=== PATIENT | female | born 1935 | race Caucasian/White ===

== ENCOUNTER 2016-12-02 13:04 | Inpatient (IN) | payer MEDICARE, OTHER ==
[~2016-12-02] VITALS: Ht 172.7 cm; Wt 78.9 kg
[~2016-12-02 13:04] MED LIST: ACET325T9 PO; BUTA1CAP29 PO; ESTR0.3T PO; HYDR12.58 PO; LEVO75TA PO; MULT-211 PO; NORT25CA PO; ONDA8TAB12 PO; PANT40TA3 PO; PRAV20TA2 PO; QUIN10TA7 PO; QUIN324C3 PO
--- NOTE | 2016-12-02 13:27 | RAD ---
CT of the head without contrast, 12/02/2016: History: Altered mental status There is mild bilateral cerebral atrophy. The ventricles are within normal limits in size. There is no shift of the midline structures. There is no evidence of acute intracranial hemorrhage or mass effect. There are mild bilateral deep white matter lucencies suggesting chronic ischemic change. IMPRESSION: 1. Bilateral deep white matter lucencies compatible with chronic ischemic change. 2. No acute intracranial abnormality is detected. 3. MR scanning would be a more sensitive method of further evaluation, if clinically indicated. Note: The findings were called to personnel in the [facility] ER at 1:24 PM on 12/02/2016. PQRS Compliance Statement: One or more of the following individualized dose reduction techniques were utilized for this examination: 1. Automated exposure control 2. Adjustment of the mA and/or kV according to patient size 3. Use of iterative reconstruction technique
[2016-12-02] MEDS ORDERED: METOCLOPRAMIDE HCL 10 MG/2 ML VIAL. ONE (13:34)
[2016-12-02 13:42] LABS: BASO % 1 % (0-3); EOS # 0.1 x10^3/uL (0.0-0.7); EOS % 2 % (0-3); HEMATOCRIT 38.2 % (36.0-47.0); HEMOGLOBIN 13.3 g/dL (12.0-15.5); LYMPH # 1.7 x10^3/uL (1.0-4.8); LYMPH % 32 % (24-48); MEAN CORPUSCULAR HEMOGLOBIN 34 pg (25-35); MEAN CORPUSCULAR HGB CONC 35 g/dL (31-37); MEAN CORPUSCULAR VOLUME 98 fL (79-100); MONO # 0.5 x10^3/uL (0.0-1.1); MONO % 10 % (0-9); NEUT # 2.9 x10^3uL (1.8-7.7); NEUT % 55 % (31-73); PLATELET COUNT 169 x10^3/uL (140-400); RED BLOOD COUNT 3.88 x10^6/uL (3.50-5.40); RED CELL DISTRIBUTION WIDTH 12.9 % (11.5-14.5); WHITE BLOOD COUNT 5.3 x10^3/uL (4.0-11.0)
[2016-12-02 13:51] LABS: POTASSIUM ISTAT 3.3 mmol/L (3.5-5.0)
[2016-12-02 13:52] LABS: HEMOGLOBIN ISTAT 12.9 gm/dL
--- NOTE | 2016-12-02 13:52 | EKG ---
[address] [address] Test Date: 2016-12-02 Test Time: 13:18:34 Pat Name: FABI RODRIGUEZ Department: Room: Gender: F [employer]: : [id number] Requested By: REJI BEJARANO Order Number: [id number] Reading MD: Maxim Ferguson Measurements Intervals [place] Rate: 101 P: -31 IN: 188 QRS: -12 QRSD: 76 T: 26 QT: 396 QTc: 514 Interpretive Statements SINUS TACHYCARDIA CONSISTENT WITH INFERIOR INFARCT PROBABLY OLD Electronically Signed On 12-04-2016 9:55:49 CDT by Maxim Ferguson
--- NOTE | 2016-12-02 13:52 | RAD ---
Portable chest, 12/02/2016: History: Weakness Comparison is made to a study from 09/16/2015. The heart size is normal. There is tortuosity of the thoracic aorta. There is a retrocardiac density due to the patient's known hiatal hernia. The pulmonary vascularity is normal. No pulmonary infiltrates are seen. There is no evidence of pleural fluid. IMPRESSION: No acute cardiopulmonary abnormality is detected.
[2016-12-02 13:57] LABS: ALBUMIN 3.7 g/dL (3.4-5.0); DIRECT BILIRUBIN 0.1 mg/dL (0.0-0.2); TOTAL BILIRUBIN 0.3 mg/dL (0.2-1.0); TOTAL PROTEIN 6.5 g/dL (6.4-8.2)
[2016-12-02] MEDS ORDERED: METOCLOPRAMIDE HCL 10 MG/2 ML VIAL. IV ONE (14:00)
[2016-12-02 14:55] LABS: BILIRUBIN,URINE NEG (NEG); CLARITY,URINE HAZY; COLOR,URINE YELLOW; GLUCOSE,URINE NEG (NEG); NITRITE,URINE POS (NEG); UROBILINOGEN,URINE 0.2 mg/dL (0.2 mg/dL)
[2016-12-02 14:56] LABS: BACTERIA,URINE MANY /HPF (0-FEW); SQUAMOUS EPITHELIAL CELL,UR FEW /LPF
--- NOTE | 2016-12-02 15:00 | PHYS DOC ---
Past History Past Medical History: Hypertension, Hypothyroid Past Surgical History: Appendectomy, Hysterectomy Alcohol Use: None Drug Use: None Adult General Chief Complaint Chief Complaint: WEAKNESS/GENERALIZED HPI HPI 81-year-old female presenting to the emergency department today with generalized weakness. EMS brings the patient as a code stroke. They do not note any focal weakness or slurred speech or facial asymmetry. They called at this as a code stroke due to generalized weakness. Patient reports feeling generally weak over the last 6-8 hours. Location generalized. Duration intermittent. No alleviating or exacerbating factors present. Review of systems is negative for cough fevers chills chest pain abdominal pain nausea vomiting diarrhea diaphoresis polyuria or dysuria. My all other review of systems is negative unless otherwise noted in history of present illness. ED course: 81-year-old female presenting to the emergency department today with generalized weakness. Showed the patient was hypertensive however this came down without any medication. Neuro exam shows no focal neurologic deficits. Otherwise examination unremarkable. CT head negative. EKG shows sinus tachycardia. ST segments are congruent. Leftward axis present. Not consistent with ACS. Chest x-ray obtained.Chest x-ray reviewed by myself shows no obvious infiltrate or pneumothorax present. No obvious acute cardiopulmonary process present. Blood work obtained normal CBC. Coags normal. Chemistry panel shows mildly low potassium with mildly low CO2 and elevation in BUN and creatinine. Patient was then admitted for further evaluation workup and care. Neurology consultation placed. Urinary analysis shows UTI. IV Rocephin given. Review of Systems Review of Systems SEE ABOVE Current Medications Current Medications Current Medications Medications (Trade) Dose Ordered Sig/Bernice Start Time Stop Time Status Last Admin Dose Admin Metoclopramide HCl (Reglan) 10 mg 1X ONCE 12/02/16 14:00 12/02/16 14:01 DC 12/02/16 13:36 10 MG Allergies Allergies Allergies Coded Allergies Type Severity Reaction Last Updated Verified No Known Drug Allergies 04/05/15 No Physical Exam Physical Exam Constitutional: Well developed, well nourished, no acute distress, non-toxic appearance. [] HENT: Normocephalic, atraumatic, bilateral external ears normal, oropharynx moist, no oral exudates, nose normal. [] Eyes: PERRLA, EOMI, conjunctiva normal, no discharge. [] Neck: Normal range of motion, no tenderness, supple, no stridor. [] Cardiovascular:Heart rate regular rhythm, no murmur [] Lungs & Thorax: Bilateral breath sounds clear to auscultation [] Abdomen: Bowel sounds normal, soft, no tenderness, no masses, no pulsatile masses. [] Skin: Warm, dry, no erythema, no rash. [] Back: No tenderness, no CVA tenderness. [] Extremities: No tenderness, no cyanosis, no clubbing, ROM intact, no edema. [] Neurologic: Alert and oriented X 3, normal motor function, normal sensory function, no focal deficits noted. [] Psychologic: Affect normal, judgement normal, mood normal. [] Current Patient Data Lab Results Laboratory Tests Test 12/02/16 13:26 White Blood Count 5.3 x10^3/uL (4.0-11.0) Red Blood Count 3.88 x10^6/uL (3.50-5.40) Hemoglobin 13.3 g/dL (12.0-15.5) POC Hemoglobin 12.9 gm/dL Hematocrit 38.2 % (36.0-47.0) POC Hematocrit 38 % Mean Corpuscular Volume 98 fL (79-100) Mean Corpuscular Hemoglobin 34 pg (25-35) Mean Corpuscular Hemoglobin Concent 35 g/dL (31-37) Red Cell Distribution Width 12.9 % (11.5-14.5) Platelet Count 169 x10^3/uL (140-400) Neutrophils (%) (Auto) 55 % (31-73) Lymphocytes (%) (Auto) 32 % (24-48) Monocytes (%) (Auto) 10 % (0-9) H Eosinophils (%) (Auto) 2 % (0-3) Basophils (%) (Auto) 1 % (0-3) Neutrophils # (Auto) 2.9 x10^3uL (1.8-7.7) Lymphocytes # (Auto) 1.7 x10^3/uL (1.0-4.8) Monocytes # (Auto) 0.5 x10^3/uL (0.0-1.1) Eosinophils # (Auto) 0.1 x10^3/uL (0.0-0.7) Basophils # (Auto) 0.0 x10^3/uL (0.0-0.2) Prothrombin Time 10.2 SEC (9.4-11.4) Prothrombin Time INR 1.0 (0.9-1.1) PTT 30 SEC (23-33) POC Sodium 135 mmol/L (135-145) POC Potassium 3.3 mmol/L (3.5-5.0) L POC Chloride 101 mmol/L (98-110) POC Total CO2 20 mmol/L (23-32) L Anion Gap 18 mmol/L (6-14) H POC Blood Urea Nitrogen 32 mg/dL (8-26) H POC Creatinine 1.7 mg/dL (0.5-1.4) H Glucose Level 135 mg/dL (60-99) H POC Ionized Calcium (Rupinder) 1.12 mmol/L (1.13-1.32) L Total Bilirubin 0.3 mg/dL (0.2-1.0) Direct Bilirubin 0.1 mg/dL (0.0-0.2) Aspartate Amino Transferase (AST) 27 U/L (15-37) Alanine Aminotransferase (ALT) 27 U/L (14-59) Alkaline Phosphatase 51 U/L (46-116) Troponin I Quantitative 0.022 ng/mL (0-0.055) Total Protein 6.5 g/dL (6.4-8.2) Albumin 3.7 g/dL (3.4-5.0) EKG EKG [] Radiology/Procedures Radiology/Procedures [] Course & Med Decision Making Course & Med Decision Making Pertinent Labs and Imaging studies reviewed. (See chart for details) [] Dragon Disclaimer Dragon Disclaimer This chart was dictated in whole or in part using Voice Recognition software in a busy, high-work load, and often noisy Emergency Department environment. It may contain unintended and wholly unrecognized errors or omissions. Departure Departure: Impression: Primary Impression: Delirium Additional Impressions: Malaise and fatigue UTI (urinary tract infection) Disposition: ADMITTED INPATIENT Admitting Physician: Yamel Moscoso Condition: STABLE Referrals: IAN HILLS MD (PCP) Problem Qualifiers REJI BEJARANO MD Dec 02, 2016 15:00
[2016-12-02] MEDS ORDERED: ONDANSETRON PF 4 MG/2 ML VIAL. ONE (15:15)
[2016-12-02] MEDS ORDERED: MECLIZINE 12.5 MG TABLET. ONE (15:19)
[2016-12-02] MEDS ORDERED: MORPHINE SULFATE 2 MG/ML DISP.SYRIN. IV PRN ×2 (15:30→23:45)
[2016-12-02] MEDS ORDERED: ONDANSETRON PF 4 MG/2 ML VIAL. IV PRN (15:30)
[2016-12-02] MEDS ORDERED: IV NORMAL SALINE 50ML 50 ML ONE (15:41)
[2016-12-02] MEDS ORDERED: cefTRIAXone SODIUM 1 GM VIAL IV ONE (15:41)
[2016-12-02] MEDS ORDERED: IV NORMAL SALINE 500ML 500 ML IV ONE (15:45)
--- NOTE | 2016-12-02 16:18 | NUR ---
Pt admitted to 109. Complaining of N/V. Worse with light and moving. Dr Moscoso notified. Will place orders. Pt on tele SR/ST. Pt A&Ox3. Pt had biopsy on left breast done 3 weeks ago, steri strips still in place. No signs of infection. Dr Desai notified of consults for weakness. Pt oriented to room. Will continue to monitor.
[2016-12-02 16:21] VITALS: BP 176/98
[2016-12-02] MEDS ORDERED: PROMETHAZINE 25 MG SUPP.RECT. PR PRN (16:30)
[2016-12-02] MEDS ORDERED: PROMETHAZINE 12.5 MG in IV NORMAL SALINE 50ML 50 ML IV PRN (16:30)
[2016-12-02] MEDS ORDERED: GLUC1TAB71 PO (16:33)
[2016-12-02] MEDS ORDERED: LOPE1LIQ7 PO (16:33)
[2016-12-02] MEDS ORDERED: SPIR1TAB PO (16:33)
[2016-12-02] MEDS: PANTOPRAZOLE IV PUSH 40 MG VIAL. IVP SCH (16:53)
[2016-12-02] MEDS ORDERED: MVI, ADULT NO.4 WITH VIT K 10 ML, FOLIC ACID 1 MG, THIAMINE 100 MG in IV DEXTROSE 5%-LA... IV ONE ×4 (17:00)
[2016-12-02] MEDS ORDERED: PYRIDOXINE 100 MG/ML VIAL. IV ONE (17:00)
[2016-12-02 19:26] VITALS: BP 123/85
[2016-12-02] MEDS: PHENAZOPYRIDINE 100 MG TABLET. PO SCH (21:12)
[2016-12-02] MEDS ORDERED: METOCLOPRAMIDE HCL 10 MG/10 ML SOLUTION. PO PRN (22:30)
--- NOTE | 2016-12-02 23:20 | NUR ---
The patient was moaning and complaining about the need to urinate. She was stating, "I need to pee." The patient had just used the bed crews and was requesting a catheter. Risk and benefits of Green catheter discussed. The patient continued to request a catheter. A 16 syriac Green catheter was placed using sterile technique and following hospital protocol. 1100 cc of urine immediately drained after Green catheter placement. The Patient verbalized relief from bladder discomfort. Urine was yellow, clear, with sediment and a strong odor. Report was given to primary nurse regarding the procedure and patient tolerance.
[2016-12-02 23:33] VITALS: BP 169/81
[2016-12-02] MEDS ORDERED: ACETAMINOPHEN 325 MG TABLET PO ONE (23:45)
[2016-12-03] VITALS (9 sets, daily range): BP systolic 123–179; BP diastolic 70–92
[2016-12-03] MEDS ORDERED: METOCLOPRAMIDE HCL 10 MG/2 ML VIAL. IV PRN (02:45)
[2016-12-03] MEDS ORDERED: ACETAMINOPHEN 325 MG TABLET PO PRN ×2 (05:45→15:30)
[2016-12-03 06:57] LABS: BASO % 1 % (0-3); EOS % 0 % (0-3); HEMATOCRIT 39.7 % (36.0-47.0); HEMOGLOBIN 13.8 g/dL (12.0-15.5); LYMPH # 1.1 x10^3/uL (1.0-4.8); LYMPH % 13 % (24-48); MEAN CORPUSCULAR HEMOGLOBIN 34 pg (25-35); MEAN CORPUSCULAR HGB CONC 35 g/dL (31-37); MEAN CORPUSCULAR VOLUME 99 fL (79-100); MONO # 0.7 x10^3/uL (0.0-1.1); MONO % 8 % (0-9); NEUT # 6.8 x10^3uL (1.8-7.7); NEUT % 79 % (31-73); PLATELET COUNT 191 x10^3/uL (140-400); RED BLOOD COUNT 4.02 x10^6/uL (3.50-5.40); RED CELL DISTRIBUTION WIDTH 12.9 % (11.5-14.5); WHITE BLOOD COUNT 8.7 x10^3/uL (4.0-11.0)
[2016-12-03] MEDS: PANTOPRAZOLE IV PUSH 40 MG VIAL. IVP SCH ×3 (07:30→11:40)
[2016-12-03 08:06] LABS: CALCIUM 9.3 mg/dL (8.5-10.1); CREATININE 1.4 mg/dL (0.6-1.0); POTASSIUM 3.5 mmol/L (3.5-5.1)
[2016-12-03] MEDS: PHENAZOPYRIDINE 100 MG TABLET. PO SCH ×2 (09:00→14:00)
[2016-12-03] MEDS ORDERED: IV NORMAL SALINE 500ML 500 ML ONE (09:24)
[2016-12-03] MEDS ORDERED: MECLIZINE 25 MG TABLET PO ONE (09:45)
[2016-12-03] MEDS: MECLIZINE 12.5 MG TABLET. PO ONE ×2 (10:00→10:03)
[2016-12-03] MEDS ORDERED: ONDANSETRON ODT 4 MG TAB.RAPDIS PO PRN (10:45)
--- NOTE | 2016-12-03 11:08 | NUR ---
Pt states nausea is somewhat better. Complains of severe dizziness and that her left side feels colder than her right side. Dizziness made worse when turning head to the right. Per Dr Moscoso, RN attempted Esthela Manuever for BPPV. This did not improve her vertigo. Patient currently without IV access, attempting to place new IV. Compazine suppository given. Green in place draining clear yellow urine. Will continue to monitor.
[2016-12-03] MEDS ORDERED: IV NORMAL SALINE 1,000ML 1,000 ML IV SCH (12:15)
--- NOTE | 2016-12-03 12:32 | NUR ---
Pt left via ambulance to [facility] for MRI. Pt agrees with testing. IV fluids running at 100ml/hr. Green in place. Sisters notified. Will continue to monitor.
[2016-12-03] MEDS ORDERED: ASPIRIN 81 MG TAB.CHEW PO SCH (15:15)
[2016-12-03] MEDS ORDERED: hydroCHLOROthiazide 25 MG TABLET PO SCH (15:30)
[2016-12-03] MEDS ORDERED: BUTALB/APAP/CAFEIN 50/325/40MG TABLET. PO PRN (15:45)
--- NOTE | 2016-12-03 15:51 | PDOC1 ---
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 She was transported to the emergency room under cold stroke. Head CT was negative for acute stroke. The patient's blood pressure at that time was 189/122. She was also found to have probably have a urinary tract infection. HISTORY: Significant for hypertension, hyperlipidemia, chronic kidney disease, hypothyroidism, and osteoarthritis. PAST SURGICAL HISTORY: Significant for total abdominal hysterectomy and bilateral salpingo-oophorectomy, and appendectomy. RECENT BREAST BIOPSY ALLERGIES: She has no known drug allergies. MEDICATIONS: She is currently on following medications: FAMILY HISTORY: She has one brother older and has myocardial infarction. Her mother at the age of 75 because of complication of coronary artery disease. Father of lung cancer at the age of 49. She has actually a sister, who lives in . SOCIAL HISTORY: She does not smoke, drink alcohol, or use recreational drugs. 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 She lives in a house independently with other nuns. Medications were reviewed and are available on the mar. Noted the patient has continued to be on estrogenbecause of continued vasomotor symptoms in spite of Dr. Magana's attempt to get her to discontinue. ROS: positive for nausea, dry heaves, vomiting, vertigo. weakness. denies blurred vision or field defects. Denies chest pain or sob. positive dysuria. no problems with bowels Physical exam: Blood pressure 166/85, pulse 97 pulse ox 99% on room air Gen. weak appearing 81-year-old in moderate distress. She is currently having dry heaves and extreme nausea Pupils were equal and reactive to light and accommodation extraocular muscles are intact mild nystagmus looking to the left skin identified 2 fingers in the field TMs were slightly dull bilaterally nose was patent her throat was clear tongue was midline neck was supple lungs are clear to auscultation cardiovascular regular rhythm and rate or abdomen was soft nontender mild tenderness over the bladder tremors without edema neurologic difficult to assess due to her extreme vertigo she is able to from the right to the left cranial nerves are intact with strength this is weaker on the left she's moving her extremities could not assess reflexes Mood is somewhat agitated due to the nausea. She is answering questions appropriately. It is alert and oriented 3. Laboratory MRI shows a right cerebellar infarct consistent with CVA Labs CBC unremarkable, chemistry profile shows elevated creatinine, Carotid Dopplers are pending Lipid profile pending assessment: acute ischemic cerebellar stroke 2 hypertension 3.Prolonged use of estrogen 4. Chronic kidney disease stage III 5. #5 hypothyroidism-he has a slightly elevated 6 hyperlipidemia- on statin Plan: Start aspirin and Plavix, increase statin. Get carotid dopplers, they have been ordered. Plan for rehab. Problems: THOR JOHNSON DO Dec 03, 2016 15:51
--- NOTE | 2016-12-03 16:08 | NUR ---
Pt returned from [facility] after MRI. Pt resting in bed, still complaining of dizziness. Denies pain. IVF infusing. Tele back on. Dr Moscoso aware of patients return. US at bedside.
[2016-12-03] MEDS ORDERED: POTASSIUM CHLORIDE 20 MEQ TABLET.ER. PO ONE (16:15)
--- NOTE | 2016-12-03 16:40 | NUR ---
Dr Desai notified of MRI results.
--- NOTE | 2016-12-03 17:00 | NUR ---
Education regarding activation of EMS, Follow up with Physician, risk factors for stroke and warning signs and symptoms of stroke given to patient.
--- NOTE | 2016-12-03 17:04 | RAD ---
Carotid ultrasound, 12/03/2016: History: Weakness, stroke Duplex evaluation of the carotid arteries in the neck was performed including grayscale, color-flow and spectral Doppler analysis. There is minimal intimal thickening in the carotid arteries. No significant focal plaque formation is seen. The Doppler data obtained from the bifurcations reveals no significant focal velocity acceleration to suggest a hemodynamically significant carotid stenosis. Antegrade flow is present in both vertebral arteries in the neck. IMPRESSION: No duplex evidence of significant carotid stenosis in the neck. Note: Stenosis calculations for CTA, MRA and conventional angiography are based upon determination of the distal ICA diameter in accordance with the NASCET methodology. Stenosis calculations for Doppler studies are derived from validated velocity criteria which are known to correlate with NASCET methodology of determining stenosis.
[2016-12-03] MEDS: POTASSIUM CHLORIDE 20 MEQ/15 ML ORAL LIQUID. PO ONE ×2 (17:23→17:27)
[2016-12-03] MEDS: ASPIRIN 81 MG TAB.CHEW PO ONE ×2 (17:23→17:26)
[2016-12-03] MEDS ORDERED: POTASSIUM CHLORIDE 20MEQ 100 ML IV ONE (17:30)
[2016-12-03] MEDS ORDERED: ASPIRIN 300 MG SUPP.RECT PR ONE (17:30)
--- NOTE | 2016-12-03 18:20 | NUR ---
Pt transferred to [facility] ICU. Report called to Carlene WOLFE. Sisters aware. Pt agrees with transfer. Information given to EMS and Barto.
[2016-12-03] MEDS ORDERED: QUINAPRIL HCL PO SCH (21:00)
[2016-12-03] MEDS ORDERED: quiNINE 324 MG CAPSULE. PO SCH (21:00)
[2016-12-03] MEDS ORDERED: PRAVASTATIN 20 MG TABLET. PO SCH (21:00)
[2016-12-03] MEDS ORDERED: NORTRIPTYLINE 25 MG CAPSULE PO SCH (21:00)
[2016-12-03] MEDS ORDERED: LISINOPRIL 20 MG TABLET PO SCH (21:00)
--- NOTE | 2016-12-03 21:47 | DS ---
DATE OF DISCHARGE: 12/03/2016 Please see full history and physical done earlier today. The patient will be transferred to the [facility] because of the nature of the cerebellar infarct and the fact that she is not doing much better than she was earlier today. She is unable to stand. She swallow and does have a headache. She has been accepted by at [facility]. THOR JOHNSON DO DR: WILFREDO/tung JOB#: [id number] / [id number]
--- NOTE | 2016-12-04 00:31 | CONS ---
DATE OF CONSULTATION: 12/02/2016 NEUROLOGIC CONSULTATION REFERRING PHYSICIAN: Dr. Moscoso. REASON FOR CONSULTATION: Generalized weakness. HISTORY OF PRESENT ILLNESS: This is an 81-year-old female who was admitted to Emergency Room after she presented with the chief complaints of generalized weakness. It was reported that she might have intermittent slurred speech; however, the patient complains of occipital headaches, generalized weakness, and dizziness described as spinning induced by changing body positions or turning head to any directions quickly. She has had intermittent nausea since admission. When we saw the patient, she was lying flat in bed and able to stand up because of severe dizziness and nausea. She did not have any vomiting. The patient denies fever, chills, chest pain, shortness of breath or palpitation, dysphagia or paraesthesia. She denies any recent head injuries or falls. Initial nonenhanced head CT scan revealed chronic ischemic changes in white matter without acute intracranial process. PAST MEDICAL HISTORY: Significant for hypertension, hypothyroidism. PAST SURGICAL HISTORY: Significant for appendectomy and hysterectomy. SOCIAL HISTORY: The patient denies smoking, alcohol drinking, or illicit drug use. FAMILY HISTORY: Noncontributory. CURRENT HOME MEDICATIONS: Levothyroxine, , estrogen, Fioricet, nortriptyline, pravastatin, quinapril, spironolactone/hydrochlorothiazide. ALLERGIES: No known drug allergies. REVIEW OF SYSTEMS: A 10-point review of system was performed and consistent with dizziness induced by motion, nausea and generalized weakness. Otherwise, as mentioned above in the history of present illness. PHYSICAL EXAMINATION: GENERAL: Well-developed, well-nourished white female, not in acute distress. VITAL SIGNS: She weighs 174 pounds. Blood pressure 169/81, respiratory rate 20, pulse is 113, temperature 97.3, oxygen saturation 100% on room air. HEENT: Normocephalic, atraumatic, otherwise unremarkable. NECK: Supple. Negative for carotid bruit, lymphadenopathy or thyromegaly. LUNGS: Clear to A and P. CARDIOVASCULAR: Regular rate and rhythm, normal S1, S2. There is no S3, S4 or murmur. ABDOMEN: Soft. Bowel sounds positive. EXTREMITIES: Negative for cyanosis, clubbing or pitting edema. NEUROLOGICAL EXAM: Mental Status: The patient is alert and oriented x 3. Speech is fluent. There is no language dysfunction. Memory, judgment, and abstract thinking are fair. The patient denies hallucination or delusion. CRANIAL NERVES: Visual [place] are full. The pupils are reactive to light and accommodation. Extraocular movements are intact. There is no nystagmus. There is no facial motor or sensory deficit. Hearing is intact bilaterally. The palate is elevated symmetrically. Sternocleidomastoid muscles are powerful bilaterally. The patient shrugs her shoulders symmetrically and protrudes her tongue in the midline without fasciculation or atrophy. MOTOR: No b bulk was seen. The tone is normal. The strength is 4/5 throughout. SENSORY EXAMINATION: Normal pinprick and light touch senses throughout. Deep tendon reflexes were symmetric and hypoactive with absent Achilles responses. Gait not tested because of severe dizziness and nausea. LABORATORY DATA: CBC revealed white blood cells of 5300, hemoglobin 13.3, hematocrit 38.2, platelet count 169,000. Chemistry revealed sodium of 135, potassium 3.3, chloride 101, CO2 20, BUN 20, creatinine 1.7, glucose 135. Liver enzymes are normal. Coagulation: PT 10.2, INR 1 and PTT 30. Urinalysis revealed small urinary leukocyte esterase with white blood cells in the range of 11-20 with many bacteria and positive urine nitrite. IMPRESSION: 1. Generalized weakness, occipital headaches, and nausea with vertigo. Rule out central nervous system as her posterior fossa pathology including cerebellum or peripheral etiology includes acute vestibulitis or vestibulopathy. 2. Hypokalemia. 3. Urinary tract infection. 4. Hypertension. 5. Hypothyroidism. RECOMMENDATIONS: 1. Brain MRI. 2. We will start the patient on meclizine 25 mg twice a day for possible vestibulitis versus positional vertigo. 3. Treat the underlying medical problems of urinary tract infections, hypothyroidism. 4. Continue with current management initiated by Dr. Moscoso for urinary tract infections and hypertension. Start the patient on aspirin 325 mg p.o. if there are no contraindications. 5. Physical therapy evaluation. M Jacoby YATES MD DR: DANIELA/tung JOB#: [id number] / [id number]
--- NOTE | 2016-12-04 00:52 | PN ---
DATE: SUBJECTIVE: The patient continues to complain of dizziness described as spinning, induced by changing body positions or turning head quickly to any directions. The patient did not vomit. She did not vomit. She complains of generalized weakness and intermittent occipital headaches. She denies slurred speech, blurred vision, numbness or paresthesia, chest pain, shortness of breath or palpitation. OBJECTIVE: GENERAL: Well-developed, well-nourished white female, not in acute distress. VITAL SIGNS: Blood pressure 123/85, respiratory rate 20, pulse is 126, temperature 98.1, oxygen saturation 98% on room air. HEENT: Normocephalic, atraumatic, otherwise, unremarkable. NECK: Supple. Negative for carotid bruit, lymphadenopathy or thyromegaly. LUNGS: Clear to A and P. CARDIOVASCULAR: Regular rate and rhythm, normal S1, S2. ABDOMEN: Soft. Bowel sounds positive. EXTREMITIES: Negative for cyanosis, clubbing or pitting edema. NEUROLOGICAL EXAM: Mental Status: The patient is alert and oriented x 3. The speech is fluent. No language dysfunction, otherwise unremarkable. Cranial nerves are intact. There is no nystagmus. As mentioned. Motor Examination: No focal muscle bulk was seen. The tone is normal. The strength is 4/5 throughout. The patient has an abnormal [id number]. The patient has intension tremor when she did [id number]. Sensory examination revealed normal pinprick, light touch, vibratory, and position senses. Deep tendon reflexes are symmetric and hypoactive with absent Achilles responses. Gait not tested. LABORATORY DATA: Chemistry revealed sodium 138, potassium 3.5, chloride 101, CO2 of 25, BUN 20, creatinine 1.4, glucose 109, calcium 9.3. IMPRESSION: 1. Vertigo with occipital headaches and generalized weakness, rule out central posterior fossa pathology as stroke versus ____. 2. Urinary tract infections. 3. Multiple medical problems include hypertension, hyperlipidemia, hypothyroidism. RECOMMENDATIONS: 1. Continue with current management and neurological recommendations. 2. Await brain MRI today. M Jacoby YATES MD DR: DANIELA/tung JOB#: [id number] / [id number]
[2016-12-04] MEDS ORDERED: LEVOTHYROXINE 125 MCG TABLET PO SCH (07:00)
[2016-12-04] MEDS ORDERED: CLOPIDOGREL BISULFATE 75 MG TABLET PO SCH (08:00)
[2016-12-04] MEDS ORDERED: SPIRONOLACTONE 25 MG TABLET PO SCH (09:00)
[2016-12-04] MEDS ORDERED: MULTIVITAMIN with MINERAL TABLET. PO SCH (09:00)
== END 2016-12-03 18:20 | disposition short-term general hospital (02) | DRG 65 ==
LOC: ER 13:04 → 1 SOUTH 15:50
PROVIDERS: ADMIT Family Medicine; ATTEND Family Medicine
DX: I63.9 Cerebral infarction, unspecified (principal); N39.0 Urinary tract infection, site not specified; N18.3 Chronic kidney disease, stage 3 (moderate); I12.9 Hypertensive chronic kidney disease with stage 1 through stage 4 chronic kidney disease, or unspecified chronic kidney disease; E03.9 Hypothyroidism, unspecified; E78.5 Hyperlipidemia, unspecified; E87.6 Hypokalemia; M19.90 Unspecified osteoarthritis, unspecified site; Z80.1 Family history of malignant neoplasm of trachea, bronchus and lung; Z82.49 Family history of ischemic heart disease and other diseases of the circulatory system; Z90.49 Acquired absence of other specified parts of digestive tract; Z90.710 Acquired absence of both cervix and uterus
CPT/HCPCS: 36415; 70450; 71010; 80047; 80048; 80061; 80076; 81001; 83605; 83735; 84484; 85025; 85610; 85730; 87641; 93005; 93880; 96361; 96374; 96375; C9113; J0696; J2405; J2550; J2765; J3415; J3480; J7040; J8597; 99285-25; J7030

== ENCOUNTER → 2017-01-02 | Outpatient (CLI) | payer MEDICARE, OTHER ==
[2016-12-03 18:21] VITALS: BP 179/92
[~2017-01-02] MED LIST changes: +GLUC1TAB71 PO; +LOPE1LIQ7 PO; +QUIN10TA15 PO; -QUIN10TA7 PO; +SPIR1TAB PO
[2017-01-03 04:09] LABS: HEMOGLOBIN A1C 5.7 % (4.8-5.6)
== END | disposition home or self-care (01) ==
LOC: SPEC 07:43
PROVIDERS: ATTEND Family Medicine
DX: R73.09 Other abnormal glucose (principal)
CPT/HCPCS: 36415; 83036

== ENCOUNTER → 2017-02-06 | Outpatient (CLI) | payer MEDICARE, OTHER ==
[2016-12-03 18:21] VITALS: BP 179/92
[2017-02-06 07:14] LABS: BASO # 0.1 x10^3/uL (0.0-0.2); BASO % 2 % (0-3); EOS # 0.5 x10^3/uL (0.0-0.7); EOS % 10 % (0-3); HEMATOCRIT 35.4 % (36.0-47.0); HEMOGLOBIN 12.1 g/dL (12.0-15.5); LYMPH % 19 % (24-48); MEAN CORPUSCULAR HEMOGLOBIN 34 pg (25-35); MEAN CORPUSCULAR HGB CONC 34 g/dL (31-37); MEAN CORPUSCULAR VOLUME 100 fL (79-100); MONO # 0.6 x10^3/uL (0.0-1.1); MONO % 11 % (0-9); NEUT % 58 % (31-73); PLATELET COUNT 217 x10^3/uL (140-400); RED BLOOD COUNT 3.55 x10^6/uL (3.50-5.40); RED CELL DISTRIBUTION WIDTH 12.6 % (11.5-14.5); WHITE BLOOD COUNT 5.2 x10^3/uL (4.0-11.0)
[2017-02-06 07:15] LABS: ALBUMIN/GLOBULIN RATIO 1.1 (1.0-1.7); CALCIUM 8.9 mg/dL (8.5-10.1); CREATININE 1.6 mg/dL (0.6-1.0); GFR 30.9; POTASSIUM 3.6 mmol/L (3.5-5.1); TOTAL BILIRUBIN 0.4 mg/dL (0.2-1.0); TOTAL PROTEIN 5.7 g/dL (6.4-8.2)
[2017-02-06 14:29] LABS: THYROID STIM HORMONE (TSH) 0.515 uIU/mL (0.358-3.740)
[2017-02-07 04:12] LABS: HEMOGLOBIN A1C 5.7 % (4.8-5.6)
== END | disposition home or self-care (01) ==
LOC: SPEC 06:38
PROVIDERS: ATTEND Family Medicine
DX: I12.9 Hypertensive chronic kidney disease with stage 1 through stage 4 chronic kidney disease, or unspecified chronic kidney disease (principal); N18.4 Chronic kidney disease, stage 4 (severe); R73.09 Other abnormal glucose; E03.9 Hypothyroidism, unspecified; E78.5 Hyperlipidemia, unspecified
CPT/HCPCS: 36415; 80053; 80061; 82306; 83036; 84443; 85025

== ENCOUNTER → 2017-03-22 | Outpatient (CLI) | payer MEDICARE, OTHER ==
[2016-12-03 18:21] VITALS: BP 179/92
[2017-03-22 07:31] LABS: ALBUMIN 3.2 g/dL (3.4-5.0); ALBUMIN/GLOBULIN RATIO 1.2 (1.0-1.7); BASO # 0.1 x10^3/uL (0.0-0.2); BASO % 2 % (0-3); CALCIUM 9.3 mg/dL (8.5-10.1); CREATININE 1.8 mg/dL (0.6-1.0); EOS # 0.4 x10^3/uL (0.0-0.7); EOS % 7 % (0-3); HEMATOCRIT 36.2 % (36.0-47.0); HEMOGLOBIN 12.2 g/dL (12.0-15.5); LYMPH % 19 % (24-48); MEAN CORPUSCULAR HEMOGLOBIN 33 pg (25-35); MEAN CORPUSCULAR HGB CONC 34 g/dL (31-37); MEAN CORPUSCULAR VOLUME 99 fL (79-100); MONO # 0.6 x10^3/uL (0.0-1.1); MONO % 11 % (0-9); NEUT # 3.3 x10^3uL (1.8-7.7); NEUT % 62 % (31-73); PLATELET COUNT 215 x10^3/uL (140-400); POTASSIUM 3.8 mmol/L (3.5-5.1); RED BLOOD COUNT 3.68 x10^6/uL (3.50-5.40); RED CELL DISTRIBUTION WIDTH 12.4 % (11.5-14.5); TOTAL BILIRUBIN 0.3 mg/dL (0.2-1.0); TOTAL PROTEIN 5.9 g/dL (6.4-8.2); WHITE BLOOD COUNT 5.3 x10^3/uL (4.0-11.0)
[2017-03-22 07:36] LABS: GFR 26.9
== END | disposition home or self-care (01) ==
LOC: SPEC 07:07
PROVIDERS: ATTEND Family Medicine
DX: I12.9 Hypertensive chronic kidney disease with stage 1 through stage 4 chronic kidney disease, or unspecified chronic kidney disease (principal); N18.4 Chronic kidney disease, stage 4 (severe); E03.9 Hypothyroidism, unspecified
CPT/HCPCS: 36415; 80053; 84443; 85025

== ENCOUNTER → 2017-05-08 | Outpatient (CLI) | payer MEDICARE, OTHER ==
[2016-12-03 18:21] VITALS: BP 179/92
[2017-05-08 20:22] LABS: MICRO CREAT RATIO 31.3 mg/g creat (0.0-30.0); MICROALB RD UR 20.7 ug/mL (Not Estab.)
[2017-05-08 23:10] LABS: BASO # 0.1 x10^3/uL (0.0-0.2); BASO % 1 % (0-3); EOS # 0.3 x10^3/uL (0.0-0.7); EOS % 6 % (0-3); HEMATOCRIT 36.9 % (36.0-47.0); HEMOGLOBIN 12.4 g/dL (12.0-15.5); LYMPH % 19 % (24-48); MEAN CORPUSCULAR HEMOGLOBIN 33 pg (25-35); MEAN CORPUSCULAR HGB CONC 34 g/dL (31-37); MEAN CORPUSCULAR VOLUME 97 fL (79-100); MONO # 0.6 x10^3/uL (0.0-1.1); MONO % 11 % (0-9); NEUT # 3.5 x10^3uL (1.8-7.7); NEUT % 63 % (31-73); PLATELET COUNT 204 x10^3/uL (140-400); RED CELL DISTRIBUTION WIDTH 13.4 % (11.5-14.5); WHITE BLOOD COUNT 5.6 x10^3/uL (4.0-11.0)
[2017-05-08 23:18] LABS: ALBUMIN 3.4 g/dL (3.4-5.0); CALCIUM 9.5 mg/dL (8.5-10.1); CREATININE 1.7 mg/dL (0.6-1.0); GFR 28.8; PHOSPHORUS 4.9 mg/dL (2.6-4.7)
[2017-05-10 09:13] LABS: UR CREATININE RD 66.9 mg/dL (Not Estab.); UR PROTEIN RD 20.1 mg/dL (Not Estab.)
== END | disposition home or self-care (01) ==
LOC: SPEC 10:03
PROVIDERS: ATTEND Internal Medicine Nephrology
DX: I12.9 Hypertensive chronic kidney disease with stage 1 through stage 4 chronic kidney disease, or unspecified chronic kidney disease (principal); N18.3 Chronic kidney disease, stage 3 (moderate); R80.1 Persistent proteinuria, unspecified
CPT/HCPCS: 36415; 80069; 82043; 82570; 83735; 84156; 85025

== ENCOUNTER → 2017-05-10 | Outpatient (CLI) | payer MEDICARE, OTHER ==
[2016-12-03 18:21] VITALS: BP 179/92
[2017-05-11 13:11] LABS: CALCIUM PTH 9.8 mg/dL (8.7-10.3); CREATININE PTH 1.66 mg/dL (0.57-1.00); PTH INTACT 37 pg/mL (15-65)
== END | disposition home or self-care (01) ==
LOC: SPEC 11:44
PROVIDERS: ATTEND Internal Medicine Nephrology
DX: I12.9 Hypertensive chronic kidney disease with stage 1 through stage 4 chronic kidney disease, or unspecified chronic kidney disease (principal); N18.3 Chronic kidney disease, stage 3 (moderate); R80.1 Persistent proteinuria, unspecified; K80.19 Calculus of gallbladder with other cholecystitis with obstruction; Z68.27 Body mass index [BMI] 27.0-27.9, adult
CPT/HCPCS: 36415; 83735; 83970

== ENCOUNTER → 2017-05-20 | Outpatient (CLI) | payer MEDICARE, OTHER ==
[2016-12-03 18:21] VITALS: BP 179/92
[2017-05-20 21:59] LABS: BILIRUBIN,URINE NEG (NEG); CLARITY,URINE CLOUDY; COLOR,URINE YELLOW; GLUCOSE,URINE NEG (NEG); NITRITE,URINE POS (NEG); RBC,URINE OCC /HPF (0-2); UROBILINOGEN,URINE 0.2 mg/dL (0.2 mg/dL); WBC,URINE >40 /HPF (0-4)
[2017-05-20 22:00] LABS: BACTERIA,URINE MANY /HPF (0-FEW); SQUAMOUS EPITHELIAL CELL,UR MOD /LPF
== END | disposition home or self-care (01) ==
LOC: LAB 20:00
PROVIDERS: ATTEND Family Medicine
DX: N39.0 Urinary tract infection, site not specified (principal); N26.9 Renal sclerosis, unspecified
CPT/HCPCS: 81001

== ENCOUNTER → 2018-01-31 | Outpatient (CLI) | payer MEDICARE, OTHER ==
[2016-12-03 18:21] VITALS: BP 179/92
--- NOTE | 2018-01-31 14:56 | RAD ---
Bone densitometry 01/31/2018 10:58 AM Indication: screening, ov failure Comparison Study: None available for review Discussion: Bone Densitometry was performed with dual photon absorption of the lumbar spine and right proximal femur. Lumbar Spine: Bone average density is 1.169g/cm2 for L1-L4. T-Score is -0.1 Scoliotic and likely degenerative sclerosis is seen involving the lumbar spine. Right femoral neck: Bone average density is 0.793g/cm2. T-Score is -1.8. IMPRESSION: Osteopenia based on decreased bone mineral density, right femoral neck Note: Definitions established by the World Health Organization: Normal: T-score is -1.0 or above. Osteopenia: T-score is between -1.0 and -2.5. Osteoporosis: T-score is -2.5 or below. Electronically signed by: Wan Trinidad MD (01/31/2018 2:53 PM) [id number]
== END | disposition home or self-care (01) ==
LOC: DXRAD 09:40
PROVIDERS: ATTEND Family Medicine
DX: M85.851 Other specified disorders of bone density and structure, right thigh (principal); Z78.0 Asymptomatic menopausal state
CPT/HCPCS: 77080

== ENCOUNTER → 2020-05-20 | Day surgery (SDC) | payer MEDICARE, OTHER ==
[~2020-05-20] MED LIST changes: +ACETAMINOPHEN 500 MG TABLET PO PRN; +BALANCED SALT IRRIG SOLN NO.2 500 ML IO ONE; +BALANCED SALT IRRIG SOLN NO.2 500 ML ONE; +BENZONATATE 100 MG CAPSULE. PO PRN; +BRIMONIDINE 0.2% OPHTH SOLUTION 5ML BOTTLE. OS ONE; +CEFUROXIME OPHTH 4 MG/0.4 ML SYRINGE. OS ONE; +CHONDROIT-SOD-HYALURONATE KIT. OS ONE; +IBUPROFEN 200 MG TABLET PO PRN; +IPRATRPIUM/ALBUTEROL 0.5/2.5MG 3 ML NEBU. NEB PRN; +IV RINGERS SOLUTION,LACTATED 1,000 ML IV SCH; +LIDO/EPI IN BSS OPHTH 2.7 ML SYRINGE. OS ONE; +LIDOCAINE 2% JELLY 6ML IN APPLICATOR. TP ONE; +MIDAZOLAM HCL PF 2 MG/2 ML VIAL. IV ONE; +MIDAZOLAM HCL PF 2 MG/2 ML VIAL. ONE; +ONDANSETRON PF 4 MG/2 ML VIAL. IV PRN; +PHENYLEPHRINE 10% OPHTH SOLUTION 5ML BOTTLE. OS PRN; +POVIDONE-IODINE 5% OPHTH SOLUTION 30ML BOTTLE. OS ONE; +POVIDONE-IODINE 5% OPHTH SOLUTION 30ML BOTTLE. OS PRN; +PROPARACAINE 0.5% OPHTH SOLUTION 15ML BOTTLE. OS ONE; +PROPARACAINE 0.5% OPHTH SOLUTION 15ML BOTTLE. OS PRN; +TOBRAMYCIN 0.3% OPHTH SOLUTION 5ML BOTTLE. OS SCH; +prednisoLONE ACETATE 1% OPHTH SUSPENSION 5ML BOTTLE. OS ONE
[2020-05-20] MEDS: TROPICAMIDE 1% OPHTH SOLUTION 15ML BOTTLE. OS SCH ×3 (10:26→10:43)
[2020-05-20] MEDS: KETOROLAC TROMETHAMINE 0.5% OPHTH SOLUTION BOTTLE. OS SCH ×2 (10:26→10:35)
[2020-05-20] MEDS: PHENYLEPHRINE 2.5% OPHTH SOLUTION 2ML BOTTLE. OS SCH ×3 (10:27→10:43)
--- NOTE | 2020-05-20 11:44 | PDOC4 ---
SURGEON: Charleen Willson MD Date of Procedure: 05/20/20 PREOP Diagnosis Visually significant cataract: Left Eye OS POSTOP Diagnosis Same PROCEDURE: Phaco w/ posterior chamber IOL: Left Eye OS ANESTHESIA Deep forniceal periocular 2% Lidocaine jelly Carole/retro bulbar block with 2% Lidocaine with 0.5% Marcaine DESCRIPTION OF PROCEDURE The risks, benefits, and alternatives were discussed with the patient who elected to proceed. Informed consent was obtained in writing and placed in the chart After anesthetizing the eye topically, the patient was taken to the operating room, and the operative eye was prepped and draped in the usual sterile fashion for ocular surgery. A wire lid speculum was placed. A 1-mm clear corneal paracentesis incision was created with the side-port blade at a position three o'clock hours clockwise from the temporal cornea. Then, 1% non-preserved Lidocaine with epinephrine was injected into the anterior chamber followed by viscoelastic. Cotton-tipped applicators were used to stabilize the globe, and a 2.4 mm keratome was used to create a self-sealing incision in clear cornea at the temporal limbus. The Utrata forceps were used to create a continuous curvilinear capsulorrhexis. Balanced saline solution was injected via cannula beneath the capsulorrhexis edge to hydrodissect the lens nucleus and cortex from the lens capsule. The phacoemulsification handpiece and a chopping instrument were then used to remove the lens nucleus. The remaining epinuclear material and cortex were removed with the irrigation/aspiration handpiece. Vis coelastic was used to re-inflate the lens capsule, and the intraocular lens was injected directly into the capsular bag. The corneal wound edges were hydrated with balanced salt solution on a cannula and the irrigation/aspiration handpiece was used to extract the remaining viscoelastic. Cefuroxime 0.1mg/ml / Vigamox 0.5% was injected into the anterior chamber intracamerally. The wounds were inspected and found to be watertight at an appropriate intraocular pressure. Topical antibiotic drops were placed on the corneal surface. LRI: No If Yes, Number [] [place] [] Length [] degrees Depth [] microns Incision [place]: 180 Toric Lens [place] [] Patch/shield with Maxitrol/Tobradex/Erythromycin ointment: Yes No Co-managed patients/postop examination stable for co-management with referring doctor. CHARLEEN WILLSON MD May 20, 2020 11:44
[2020-05-20 11:53] VITALS: BP 167/96
== END | disposition home or self-care (01) ==
LOC: SURG 10:02
PROVIDERS: ATTEND Ophthalmology
DX: H25.12 Age-related nuclear cataract, left eye (principal); I12.9 Hypertensive chronic kidney disease with stage 1 through stage 4 chronic kidney disease, or unspecified chronic kidney disease; N18.4 Chronic kidney disease, stage 4 (severe); E78.00 Pure hypercholesterolemia, unspecified; E03.9 Hypothyroidism, unspecified; K44.9 Diaphragmatic hernia without obstruction or gangrene; K21.9 Gastro-esophageal reflux disease without esophagitis; Z86.718 Personal history of other venous thrombosis and embolism; Z98.890 Other specified postprocedural states; Z79.899 Other long term (current) drug therapy; Z86.73 Personal history of transient ischemic attack (TIA), and cerebral infarction without residual deficits; Z79.82 Long term (current) use of aspirin
CPT/HCPCS: 66984; J2250; V2632

== ENCOUNTER → 2020-06-03 | Day surgery (SDC) | payer MEDICARE, OTHER ==
[~2020-06-03] MED LIST changes: -BALANCED SALT IRRIG SOLN NO.2 500 ML ONE; -LIDOCAINE 2% JELLY 6ML IN APPLICATOR. TP ONE; -TOBRAMYCIN 0.3% OPHTH SOLUTION 5ML BOTTLE. OS SCH
[2020-06-03] MEDS: KETOROLAC TROMETHAMINE 0.5% OPHTH SOLUTION BOTTLE. OS SCH ×2 (07:19→07:27)
[2020-06-03] MEDS: PHENYLEPHRINE 2.5% OPHTH SOLUTION 2ML BOTTLE. OS SCH ×3 (07:19→07:30)
[2020-06-03] MEDS: TOBRAMYCIN 0.3% OPHTH SOLUTION 5ML BOTTLE. OS SCH ×2 (07:19→07:27)
[2020-06-03] MEDS: TROPICAMIDE 1% OPHTH SOLUTION 15ML BOTTLE. OS SCH ×3 (07:19→07:30)
--- NOTE | 2020-06-03 08:22 | PDOC4 ---
SURGEON: Charleen Willson MD Date of Procedure: 06/03/20 PREOP Diagnosis Visually significant cataract: Right Eye OD POSTOP Diagnosis Same PROCEDURE: Phaco w/ posterior chamber IOL: Right Eye OD ANESTHESIA Deep forniceal periocular 2% Lidocaine jelly Carole/retro bulbar block with 2% Lidocaine with 0.5% Marcaine DESCRIPTION OF PROCEDURE The risks, benefits, and alternatives were discussed with the patient who elected to proceed. Informed consent was obtained in writing and placed in the chart After anesthetizing the eye topically, the patient was taken to the operating room, and the operative eye was prepped and draped in the usual sterile fashion for ocular surgery. A wire lid speculum was placed. A 1-mm clear corneal paracentesis incision was created with the side-port blade at a position three o'clock hours clockwise from the temporal cornea. Then, 1% non-preserved Lidocaine with epinephrine was injected into the anterior chamber followed by viscoelastic. Cotton-tipped applicators were used to stabilize the globe, and a 2.4 mm keratome was used to create a self-sealing incision in clear cornea at the temporal limbus. The Utrata forceps were used to create a continuous curvilinear capsulorrhexis. Balanced saline solution was injected via cannula beneath the capsulorrhexis edge to hydrodissect the lens nucleus and cortex from the lens capsule. The phacoemulsification handpiece and a chopping instrument were then used to remove the lens nucleus. The remaining epinuclear material and cortex were removed with the irrigation/aspiration handpiece. V iscoelastic was used to re-inflate the lens capsule, and the intraocular lens was injected directly into the capsular bag. The corneal wound edges were hydrated with balanced salt solution on a cannula and the irrigation/aspiration handpiece was used to extract the remaining viscoelastic. Cefuroxime 0.1mg/ml / Vigamox 0.5% was injected into the anterior chamber intracamerally. The wounds were inspected and found to be watertight at an appropriate intraocular pressure. Topical antibiotic drops were placed on the corneal surface. LRI: No If Yes, Number [] [place] [] Length [] degrees Depth [] microns Incision [place]: 180 Toric Lens [place] [] Patch/shield with Maxitrol/Tobradex/Erythromycin ointment: Yes No Co-managed patients/postop examination stable for co-management with referring doctor. CHARLEEN WILLSON MD Jun 03, 2020 08:22
[2020-06-03 08:33] VITALS: BP 144/81
== END | disposition home or self-care (01) ==
LOC: SURG 06:52
PROVIDERS: ATTEND Ophthalmology
DX: H25.11 Age-related nuclear cataract, right eye (principal); E78.00 Pure hypercholesterolemia, unspecified; M19.90 Unspecified osteoarthritis, unspecified site; E03.9 Hypothyroidism, unspecified; K21.9 Gastro-esophageal reflux disease without esophagitis; I12.9 Hypertensive chronic kidney disease with stage 1 through stage 4 chronic kidney disease, or unspecified chronic kidney disease; N18.4 Chronic kidney disease, stage 4 (severe); Z86.718 Personal history of other venous thrombosis and embolism; Z90.49 Acquired absence of other specified parts of digestive tract; Z79.82 Long term (current) use of aspirin; Z79.899 Other long term (current) drug therapy; Z90.710 Acquired absence of both cervix and uterus; Z72.89 Other problems related to lifestyle; Z86.73 Personal history of transient ischemic attack (TIA), and cerebral infarction without residual deficits; Z82.49 Family history of ischemic heart disease and other diseases of the circulatory system
CPT/HCPCS: 66984; J2250; V2632